=== PATIENT | male | born 2000 | race Caucasian/White ===

== ENCOUNTER 2022-01-22 12:38 | Emergency (ER) | payer BC, OTHER ==
[2022-01-22 13:06] VITALS: BP 115/68; PULSE 94; RESP 16; TEMP 98.6; BMI 24.2
[2022-01-22] MEDS ORDERED: IBUPROFEN 400 MG TABLET (FP) PO ONE ×2 (14:24→14:31)
== END 2022-01-22 14:38 | disposition home or self-care (01) ==
LOC: FER 12:38
DX: S80.912A Unspecified superficial injury of left knee, initial encounter (principal); W01.0XXA Fall on same level from slipping, tripping and stumbling without subsequent striking against object, initial encounter
CPT/HCPCS: 73560-TC-LT-FY; 99283-25